=== PATIENT | male | born 1985 | race American Indian/Alaskan Native ===

== ENCOUNTER 2019-11-12 19:01 | Emergency (ER) | payer BC, OTHER ==
[2019-11-12 19:24] VITALS: BP 122/68; PULSE 102; TEMP 97.8; BMI 27.2
[2019-11-12] MEDS ORDERED: ALBUTEROL SO4 2.5/IPRATROPIUM 0.5 INH SOL 3 ML VIAL.NEB. NEB ONE ×3 (19:30→20:22)
[2019-11-12] MEDS ORDERED: DEXAMETHASONE LIQUID 0.5 MG/5 ML PO ONE (19:40)
--- NOTE | 2019-11-12 19:40 | PDOC ---
History of Present Illness - General Chief Complaint: Asthma Stated Complaint: ASTHMA Time Seen by Provider: 11/12/19 19:31 History Source: Patient Exam Limitations: No Limitations Past History - Travel Traveled outside of the country in the last 30 days: No Close contact w/someone who was outside of country & ill: No - Past Medical History Allergies/Adverse Reactions: Allergies Allergy/AdvReac Type Severity Reaction Status Date / Time alcohol Allergy Difficulty Verified 11/12/19 19:25 Breathing Home Medications: Ambulatory Orders Salmeterol/Fluticasone [Advair 100Mcg/50Mcg -] 1 inh IH BID #0 inh 01/17/13 Cephalexin Monohydrate [Keflex -] 500 mg PO Q8H #21 capsule 10/12/16 Ibuprofen 600 mg PO QID #30 tablet 10/12/16 Sulfamethoxazole/Trimethoprim [Bactrim Ds -] 1 tab PO BID #20 tablet 10/12/16 Albuterol 0.083% Nebulizer Deedee [Ventolin 0.083% Nebulizer Soln -] 1 neb NEB Q4H #20 vial 11/12/19 Guaifenesin AC [Robitussin AC] 10 ml PO Q8H PRN #120 ml MDD 3 11/12/19 Methylprednisolone [Medrol Dose Trevor] 4 mg PO ASDIR #21 tablet 11/12/19 Salmeterol/Fluticasone [Advair 100Mcg/50Mcg -] 1 inh IH BID #1 inh 11/12/19 Asthma: Yes COPD: No Diabetes: Yes HTN: Yes Hypercholesterolemia: Yes - Immunization History Immunization Up to Date: Yes - Psycho Social/Smoking Cessation Hx Smoking Status: No Smoking History: Never smoked Have you smoked in the past 12 months: No Number of Cigarettes Smoked Daily: 0 Information on smoking cessation initiated: No Hx Alcohol Use: No Drug/Substance Use Hx: No Substance Use Type: None Hx Substance Use Treatment: No Review of Systems - Review of Systems Able to Perform ROS?: Yes Comments:: 11/12/19 22:47 CONSTITUTIONAL: Absent: fever, chills, diaphoresis, generalized weakness, malaise, loss of appetite HEENT: Absent: rhinorrhea, nasal congestion, throat pain, throat swelling, difficulty swallowing, mouth swelling, ear pain, eye pain, visual Changes CARDIOVASCULAR: Absent: chest pain, loss of consciousness, palpitations, irregular heart rate, peripheral edema RESPIRATORY: Present: Cough, wheezing, shortness of breath. Absent: dyspnea with exertion, orthopnea, stridor, hemoptysis GASTROINTESTINAL: Absent: abdominal pain, abdominal distension, nausea, vomiting, diarrhea, constipation, melena, hematochezia GENITOURINARY: Absent: dysuria, frequency, urgency, hesitancy, hematuria, flank pain, genital pain MUSCULOSKELETAL: Absent: myalgia, arthralgia, joint swelling SKIN: Absent: rash, itching, pallor NEUROLOGIC: Absent: headache, focal weakness or paresthesias, dizziness, unsteady gait, seizure, mental status changes, bladder or bowel incontinence PSYCHIATRIC: Absent: anxiety, depression, suicidal or homicidal ideation, hallucinations. Is the patient limited Yakut proficient: No *Physical Exam - Vital Signs Last Vital Signs Temp Pulse Resp BP Pulse Ox 97.8 F 102 H 22 H 122/68 99 11/12/19 19:22 11/12/19 19:22 11/12/19 19:22 11/12/19 19:22 11/12/19 19:22 - Physical Exam 11/12/19 22:47 GENERAL: Well developed, well nourished. Awake and alert. No acute distress. HEENT: Normocephalic, atraumatic. PERRLA, EOMI. No conjunctival pallor. Sclera are non- icteric. Moist mucous membranes. Oropharynx is clear. NECK: Supple. Full ROM. No JVD. Carotid pulses 2+ and symmetric, without bruits. No thyromegaly. No lymphadenopathy. CARDIOVASCULAR: Regular rate and rhythm. No murmurs, rubs, or gallops. Distal pulses are 2+ and symmetric. PULMONARY: Mild evidence of respiratory distress. Having difficulty speaking in full sentences. Lungs clear with wheezing bilaterally, fair aeration to the bases. No rales or rhonchi. SKIN: Warm and dry. Normal capillary refill. No rashes. No jaundice. NEUROLOGICAL: Alert, awake, appropriate. Cranial nerves 2-12 intact. No deficits to light touch and temperature in face, upper extremities and lower extremities. No motor deficits in the in face, upper extremities and lower extremities. Normoreflexic in the upper and lower extremities. Normal speech. Toes are down- going bilaterally. Gait is normal without ataxia. PSYCHIATRIC: Cooperative. Good eye contact. Appropriate mood and affect. Medical Decision Making - Medical Decision Making 11/12/19 22:48 The patient is a 34-year-old male with past medical history of asthma, who presents to the ER today for shortness of breath and difficulty breathing for 2 days. He states that he tried taking his albuterol pump at home with little relief of his symptoms. He notes that the asthma exacerbation was set off by a postnasal drip. He does not take any inhaled steroids. Denies fevers, chills, earache, sore throat, nausea, vomiting and diarrhea. A/P: Asthma exacerbation On initial exam; lung sounds are tight with wheezing in the apices. Patient having trouble speaking in full sentences Patient given for DuoNeb's, Robitussin and Decadron with relief of symptoms. Repeat exam now with good air sounds to the bases, no wheezing and patient able to talk in full sentences. Patient still with dry cough. O2 sat stable Discharge home with strict follow-up precautions. Patient advised to follow-up with his primary care doctor on Friday I discussed the physical exam findings, ancillary test results and final diagnoses with the patient. I answered all of the patient's questions. The patient was satisfied with the care received and felt comfortable with the discharge plan and treatment plan. The Patient agrees to follow up with the primary care physician/specialist within 24-72 hours. Return precautions were given. Discharge - Discharge Information Problems reviewed: Yes Clinical Impression/Diagnosis: Asthma attack Qualifiers: Asthma severity: mild Asthma persistence: intermittent Qualified Code(s): J45.21 - Mild intermittent asthma with (acute) exacerbation Condition: Stable Disposition: HOME - Admission No - Additional Discharge Information Prescriptions: Albuterol 0.083% Nebulizer Deedee [Ventolin 0.083% Nebulizer Soln -] 1 neb NEB Q4H #20 vial Guaifenesin AC [Robitussin AC] 10 ml PO Q8H PRN #120 ml MDD 3 PRN Reason: Cough Methylprednisolone [Medrol Dose Trevor] 4 mg PO ASDIR #21 tablet Salmeterol/Fluticasone [Advair 100Mcg/50Mcg -] 1 inh IH BID #1 inh - Follow up/Referral Referrals: Emmanuel Owens MD [Primary Care Provider] - - Patient Discharge Instructions Patient Printed Discharge Instructions: Asthma -- Adult Additional Instructions: You were evaluated for your asthma today. Please take the medications as prescribed to you. You were also prescribed Robitussin with codeine. Please do not drink alcohol or drive after taking this medication as it may make you drowsy. This is for your cough. Follow-up with your primary care doctor this week. Return to the ER for increased difficulty breathing, shortness of breath or if you have any changes in your symptoms. - Post Discharge Activity Work/Back to School Note: Back to Work
[2019-11-12] MEDS: ALBUTEROL SO4 2.5/IPRATROPIUM 0.5 INH SOL 3 ML VIAL.NEB. NEB SCH ×2 (20:21→20:55)
[2019-11-12] MEDS ORDERED: DEXAMETHASONE SOD PHOSPHATE 10 MG/1 ML VIAL ONE (20:23)
[2019-11-12] MEDS ORDERED: guaiFENesin/D-METHORPHAN HB 10 ML UNIT-DOSE CUPS PO ONE (21:22)
[2019-11-12] MEDS ORDERED: guaiFENesin/D-METHORPHAN HB 10 ML UNIT-DOSE CUPS ONE (21:24)
== END 2019-11-12 21:32 | disposition home or self-care (01) ==
LOC: JERFT 19:01
PROC: 3E0F7GC Introduction of Other Therapeutic Substance into Respiratory Tract, Via Natural or Artificial Opening (ICD-10-PCS; principal; 2019-11-12)
DX: J45.21 Mild intermittent asthma with (acute) exacerbation (principal); Z88.8 Allergy status to other drugs, medicaments and biological substances
CPT/HCPCS: 99281-25

== ENCOUNTER 2021-01-02 10:36 | Emergency (ER) | payer OTHER | END 2021-01-02 10:47 | disposition home or self-care (01) | LOC: JVIRT 10:36 | DX: U07.1 COVID-19 (principal) | CPT/HCPCS: C9803; G2012-GT; Q3014-GT; U0003 ==

== ENCOUNTER 2021-01-06 13:21 | Inpatient (IN) | payer OTHER ==
[2021-01-06] MEDS ORDERED: DEXAMETHASONE SOD PHOSPHATE 10 MG/1 ML VIAL IVPUSH ONE (14:53)
[2021-01-06] MEDS ORDERED: DEXAMETHASONE SOD PHOSPHATE 10 MG/1 ML VIAL ONE (15:12)
[2021-01-06 15:39] LABS: BASO % 0.3 % (0-2.0); EOS % 0.2 % (0-4.5); HEMATOCRIT 44.3 % (35.4-49); HEMOGLOBIN 15.5 GM/dL (11.7-16.9); LYMPH % 8.8 % (8-40); MCH 30.7 pg (25.7-33.7); MEAN CELL VOLUME 87.7 fl (80-96); MEAN PLT VOLUME 8.4 fl (7.5-11.1); MONO % 12.3 % (3.8-10.2); NEUT % 78.4 % (42.8-82.8); PLATELET COUNT 351 K/MM3 (134-434); RBC 5.06 M/mm3 (4.00-5.60); RDW 12.4 % (11.9-15.9)
[2021-01-06] MEDS ORDERED: ALBUTEROL SO4 2.5/IPRATROPIUM 0.5 INH SOL 3 ML VIAL.NEB. NEB ONE ×2 (15:39→17:38)
[2021-01-06 15:52] LABS: CHLORIDE 107 mmol/L (98-107); POTASSIUM 4.4 mmol/L (3.5-5.1); SODIUM 139 mmol/L (136-145)
[2021-01-06 15:54] LABS: ALBUMIN 2.2 g/dl (3.4-5.0); ANION GAP 10 MMOL/L (8-16); CALCIUM 8.1 mg/dL (8.5-10.1); CO2 22 mmol/L (21-32); GLUCOSE,RANDOM 289 mg/dL (74-106)
[2021-01-06 15:55] LABS: INR 1.02 (0.83-1.09); PROTHROMBIN TIME (PATIENT) 12.3 SEC (9.7-13.0)
[2021-01-06 15:58] LABS: ACTIVATED PTT 35.9 SECONDS (25.2-36.5); SGOT/AST 50 U/L (15-37); SGPT/ALT 62 U/L (13-61)
[2021-01-06 15:59] LABS: BILIRUBIN,TOTAL 0.9 mg/dL (0.2-1); LDH 490 U/L (87-246)
[2021-01-06 16:00] LABS: ALK PHOS 74 U/L (45-117)
[2021-01-06] MEDS ORDERED: ALBUTEROL SO4 2.5/IPRATROPIUM 0.5 INH SOL 3 ML VIAL.NEB. NEB PRN ×2 (16:17→17:30)
[2021-01-06] MEDS ORDERED: REMDESIVIR 200 MG in SODIUM CHLORIDE 210 ML IVPB ONE ×2 (17:30→22:00)
[2021-01-06] MEDS ORDERED: ACETAMINOPHEN 325 MG TABLET (FP) ONE (17:38)
[2021-01-06] MEDS ORDERED: PANTOPRAZOLE 40 MG TABLET ONE (17:39)
[2021-01-06] MEDS ORDERED: ENOXAPARIN NA (PORCINE) 60 MG/0.6 ML DISP.SYRIN SQ ONE (17:40)
[2021-01-06] MEDS: ENOXAPARIN NA (PORCINE) 40 MG/0.4 ML DISP.SYRIN SQ SCH (17:47)
[2021-01-06] MEDS: INSULIN SLIDING SCALE (NOVOLOG) 1 VIAL SQ SCH (17:48)
[2021-01-06] MEDS: PANTOPRAZOLE 40 MG TABLET PO SCH (17:49)
[2021-01-06] MEDS ORDERED: ACETAMINOPHEN 500 MG TABLET (FP) PO ONE (17:52)
[2021-01-06] MEDS: BUDESONIDE/FORMETEROL FUMARATE 160/4.5 mcg INHALER IH SCH (23:00)
[2021-01-06] MEDS: ALBUTEROL SO4 HFA INHALER IH SCH (23:00)
[2021-01-07 01:30] VITALS: BMI 41.1
[2021-01-07] MEDS: INSULIN SLIDING SCALE (NOVOLOG) 1 VIAL SQ SCH ×3 (06:20→18:37)
[2021-01-07 09:24] LABS: BASO % 0.3 % (0-2.0); HEMOGLOBIN 14.3 GM/dL (11.7-16.9); LYMPH % 9.2 % (8-40); MCH 30.2 pg (25.7-33.7); MCHC 34.2 g/dl (32.0-35.9); MEAN CELL VOLUME 88.3 fl (80-96); MEAN PLT VOLUME 8.5 fl (7.5-11.1); MONO % 11.3 % (3.8-10.2); NEUT % 79.2 % (42.8-82.8); PLATELET COUNT 371 K/MM3 (134-434); RBC 4.75 M/mm3 (4.00-5.60); RDW 12.4 % (11.9-15.9); WHITE BLOOD COUNT 11.2 K/mm3 (4.0-10.0)
[2021-01-07 09:42] LABS: POTASSIUM 4.3 mmol/L (3.5-5.1)
[2021-01-07 09:50] LABS: ALBUMIN 2.1 g/dl (3.4-5.0); BLOOD UREA NITROGEN 19.4 mg/dL (7-18); CALCIUM 8.4 mg/dL (8.5-10.1)
[2021-01-07 09:51] LABS: MAGNESIUM 2.2 mg/dL (1.8-2.4)
[2021-01-07 09:54] LABS: PHOSPHOROUS 3.9 mg/dL (2.5-4.9)
[2021-01-07 09:55] LABS: TOT PROT 6.8 g/dl (6.4-8.2)
[2021-01-07] MEDS: DEXAMETHASONE SOD PHOSPHATE 10 MG/1 ML VIAL IVPUSH SCH (09:57)
[2021-01-07 09:59] LABS: BILIRUBIN,TOTAL 0.5 mg/dL (0.2-1)
[2021-01-07] MEDS: ENOXAPARIN NA (PORCINE) 40 MG/0.4 ML DISP.SYRIN SQ SCH (09:59)
[2021-01-07] MEDS: BUDESONIDE/FORMETEROL FUMARATE 160/4.5 mcg INHALER IH SCH ×2 (10:00→21:41)
[2021-01-07] MEDS: ALBUTEROL SO4 HFA INHALER IH SCH ×4 (10:00→20:15)
[2021-01-07] MEDS: PANTOPRAZOLE 40 MG TABLET PO SCH (10:00)
[2021-01-07] MEDS ORDERED: DEXTROSE 5%-WATER 100 ML IVPB ONE ×2 (13:15→21:02)
[2021-01-07] MEDS ORDERED: DOXYCYCLINE HYCLATE 100 MG VIAL ONE ×2 (13:15→21:02)
[2021-01-07] MEDS: DOXYCYCLINE INJECTION 100 MG in DEXTROSE 5%-WATER 100 ML IVPB SCH ×2 (13:36→21:41)
[2021-01-07] MEDS: REMDESIVIR 100 MG in SODIUM CHLORIDE 230 ML IVPB SCH (22:50)
[2021-01-07] MEDS ORDERED: PT OWN MED DRAWER 7, Y5N ONE ×2 (23:15→23:17)
[2021-01-08] MEDS: INSULIN SLIDING SCALE (NOVOLOG) 1 VIAL SQ SCH ×4 (06:09→17:29)
[2021-01-08] MEDS ORDERED: LISINOPRIL 5 MG TABLET PO PRN (06:45)
[2021-01-08] MEDS: INSULIN (NOVOLOG MIX 70/30) 100 UNITS/ML MDV SQ SCH ×2 (08:31→17:23)
[2021-01-08] MEDS: ALBUTEROL SO4 HFA INHALER IH SCH ×4 (08:34→22:21)
[2021-01-08] MEDS ORDERED: DOXYCYCLINE HYCLATE 100 MG VIAL ONE ×2 (09:00→22:18)
[2021-01-08] MEDS ORDERED: DEXTROSE 5%-WATER 100 ML IVPB ONE ×2 (09:00→22:18)
[2021-01-08 09:09] LABS: BASO % 0.3 % (0-2.0); EOS % 0.3 % (0-4.5); HEMATOCRIT 40.6 % (35.4-49); LYMPH % 12.8 % (8-40); MCH 30.2 pg (25.7-33.7); MCHC 34.4 g/dl (32.0-35.9); MEAN CELL VOLUME 87.8 fl (80-96); MEAN PLT VOLUME 8.4 fl (7.5-11.1); MONO % 10.5 % (3.8-10.2); NEUT % 76.1 % (42.8-82.8); PLATELET COUNT 441 K/MM3 (134-434); RBC 4.63 M/mm3 (4.00-5.60); RDW 12.5 % (11.9-15.9); WHITE BLOOD COUNT 12.5 K/mm3 (4.0-10.0)
[2021-01-08 09:40] LABS: POTASSIUM 4.2 mmol/L (3.5-5.1)
[2021-01-08 09:52] LABS: ALBUMIN 2.1 g/dl (3.4-5.0)
[2021-01-08 09:53] LABS: BLOOD UREA NITROGEN 23.3 mg/dL (7-18); CALCIUM 8.5 mg/dL (8.5-10.1)
[2021-01-08 09:57] LABS: BILIRUBIN,TOTAL 0.5 mg/dL (0.2-1); TOT PROT 6.8 g/dl (6.4-8.2)
[2021-01-08] MEDS ORDERED: PT OWN MED DRAWER 7, Y5N ONE ×2 (10:43→22:18)
[2021-01-08] MEDS: PANTOPRAZOLE 40 MG TABLET PO SCH (10:45)
[2021-01-08] MEDS: ENOXAPARIN NA (PORCINE) 40 MG/0.4 ML DISP.SYRIN SQ SCH (10:45)
[2021-01-08] MEDS: BUDESONIDE/FORMETEROL FUMARATE 160/4.5 mcg INHALER IH SCH ×2 (10:47→22:25)
[2021-01-08] MEDS: DOXYCYCLINE INJECTION 100 MG in DEXTROSE 5%-WATER 100 ML IVPB SCH ×2 (11:05→22:20)
[2021-01-08] MEDS: DEXAMETHASONE SOD PHOSPHATE 10 MG/1 ML VIAL IVPUSH SCH (11:05)
[2021-01-08] MEDS ORDERED: INSULIN (NOVOLOG) ASPART 100 UNITS/ML 10ML VIAL ONE ×2 (11:31→17:28)
[2021-01-08] MEDS ORDERED: LYTES/YERBA SANTA 60 ML SPRAY MM PRN ×2 (11:43→11:44)
[2021-01-08] MEDS ORDERED: INSULIN (NOVOLOG MIX 70/30) 100 UNITS/ML MDV SQ SCH (20:29)
[2021-01-08] MEDS: REMDESIVIR 100 MG in SODIUM CHLORIDE 230 ML IVPB SCH (22:50)
[2021-01-09] MEDS: INSULIN SLIDING SCALE (NOVOLOG) 1 VIAL SQ SCH ×3 (06:30→15:35)
[2021-01-09 09:17] LABS: BASO % 0.3 % (0-2.0); EOS % 0.3 % (0-4.5); HEMOGLOBIN 14.5 GM/dL (11.7-16.9); LYMPH % 17.2 % (8-40); MCH 30.3 pg (25.7-33.7); MCHC 34.5 g/dl (32.0-35.9); MEAN CELL VOLUME 87.7 fl (80-96); MEAN PLT VOLUME 8.7 fl (7.5-11.1); MONO % 12.1 % (3.8-10.2); NEUT % 70.1 % (42.8-82.8); PLATELET COUNT 444 K/MM3 (134-434); RBC 4.79 M/mm3 (4.00-5.60); RDW 12.9 % (11.9-15.9); WHITE BLOOD COUNT 9.9 K/mm3 (4.0-10.0)
[2021-01-09] MEDS ORDERED: DEXTROSE 5%-WATER 100 ML IVPB ONE (09:20)
[2021-01-09] MEDS ORDERED: DOXYCYCLINE HYCLATE 100 MG VIAL ONE (09:20)
[2021-01-09] MEDS: ALBUTEROL SO4 HFA INHALER IH SCH ×4 (09:30→21:52)
[2021-01-09] MEDS: DEXAMETHASONE SOD PHOSPHATE 10 MG/1 ML VIAL IVPUSH SCH (09:30)
[2021-01-09] MEDS: DOXYCYCLINE INJECTION 100 MG in DEXTROSE 5%-WATER 100 ML IVPB SCH (09:31)
[2021-01-09] MEDS: PANTOPRAZOLE 40 MG TABLET PO SCH (09:31)
[2021-01-09] MEDS: BUDESONIDE/FORMETEROL FUMARATE 160/4.5 mcg INHALER IH SCH ×2 (09:31→21:53)
[2021-01-09] MEDS: ENOXAPARIN NA (PORCINE) 40 MG/0.4 ML DISP.SYRIN SQ SCH (09:31)
[2021-01-09] MEDS ORDERED: INSULIN (NOVOLOG MIX 70/30) 100 UNITS/ML MDV SQ SCH ×2 (09:36→11:05)
[2021-01-09] MEDS ORDERED: LISINOPRIL 5 MG TABLET PO PRN (09:37)
[2021-01-09 09:48] LABS: CHLORIDE 105 mmol/L (98-107); POTASSIUM 3.9 mmol/L (3.5-5.1); SODIUM 137 mmol/L (136-145)
[2021-01-09 10:23] LABS: CALCIUM 8.3 mg/dL (8.5-10.1)
[2021-01-09 10:24] LABS: ALBUMIN 2.1 g/dl (3.4-5.0); ANION GAP 7 MMOL/L (8-16); BLOOD UREA NITROGEN 24.5 mg/dL (7-18); CO2 25 mmol/L (21-32); GLUCOSE,RANDOM 275 mg/dL (74-106)
[2021-01-09 10:26] LABS: SGPT/ALT 73 U/L (13-61)
[2021-01-09 10:27] LABS: BILIRUBIN,TOTAL 0.4 mg/dL (0.2-1); SGOT/AST 53 U/L (15-37); TOT PROT 6.6 g/dl (6.4-8.2)
[2021-01-09 10:29] LABS: ALK PHOS 66 U/L (45-117); CHOLESTEROL 175 mg/dL (50-200); TRIGLYCERIDES 225 mg/dL (0-150)
[2021-01-09 10:30] LABS: CREATININE 0.9 mg/dL (0.55-1.3); LDL CHOLESTEROL (ONLY SJRH) 116 mg/dL (5-100)
[2021-01-09 10:32] LABS: HDL CHOLESTEROL 38 mg/dL (40-60)
[2021-01-09 10:35] LABS: N-TERMINAL BNP 376.4 pg/ml (5-125)
[2021-01-09 11:34] LABS: ANISOCYTOSIS 0; MACROCYTOSIS 0; PLATELET ESTIMATE NORMAL
[2021-01-09] MEDS ORDERED: INSULIN (NOVOLOG) ASPART 100 UNITS/ML 10ML VIAL ONE (15:43)
[2021-01-09] MEDS: INSULIN (NOVOLOG MIX 70/30) 100 UNITS/ML MDV SQ SCH (16:02)
[2021-01-09] MEDS: REMDESIVIR 100 MG in SODIUM CHLORIDE 230 ML IVPB SCH (21:52)
[2021-01-10] MEDS: INSULIN SLIDING SCALE (NOVOLOG) 1 VIAL SQ SCH ×3 (06:50→15:41)
[2021-01-10] MEDS: INSULIN (NOVOLOG MIX 70/30) 100 UNITS/ML MDV SQ SCH ×2 (06:51→15:41)
[2021-01-10] MEDS ORDERED: INSULIN (NOVOLOG MIX 70/30) 100 UNITS/ML MDV SQ SCH ×2 (09:30→16:30)
[2021-01-10] MEDS: DEXAMETHASONE SOD PHOSPHATE 10 MG/1 ML VIAL IVPUSH SCH (09:31)
[2021-01-10] MEDS: ALBUTEROL SO4 HFA INHALER IH SCH ×4 (09:32→21:45)
[2021-01-10] MEDS: ENOXAPARIN NA (PORCINE) 40 MG/0.4 ML DISP.SYRIN SQ SCH (09:32)
[2021-01-10] MEDS: PANTOPRAZOLE 40 MG TABLET PO SCH (09:32)
[2021-01-10] MEDS: amLODIPine BESYLATE 2.5 MG TABLET (FP) PO SCH (09:32)
[2021-01-10] MEDS: BUDESONIDE/FORMETEROL FUMARATE 160/4.5 mcg INHALER IH SCH ×2 (09:33→21:43)
[2021-01-10] MEDS: DOXYCYCLINE HYCLATE 100 MG CAPSULE PO SCH ×2 (09:33→17:07)
[2021-01-10] MEDS ORDERED: LISINOPRIL 5 MG TABLET PO SCH (10:00)
[2021-01-10] MEDS: LISINOPRIL 10 MG TABLET PO SCH (11:44)
[2021-01-10] MEDS ORDERED: PT OWN MED DRAWER 7, Y5N ONE (21:12)
[2021-01-10] MEDS: REMDESIVIR 100 MG in SODIUM CHLORIDE 230 ML IVPB SCH (21:41)
[2021-01-11] MEDS: INSULIN (NOVOLOG MIX 70/30) 100 UNITS/ML MDV SQ SCH (06:21)
[2021-01-11] MEDS: INSULIN SLIDING SCALE (NOVOLOG) 1 VIAL SQ SCH ×2 (06:21→12:31)
[2021-01-11 09:12] LABS: BASO % 0.3 % (0-2.0); EOS % 0.7 % (0-4.5); HEMATOCRIT 42.2 % (35.4-49); LYMPH % 21.5 % (8-40); MCH 30.4 pg (25.7-33.7); MCHC 35.5 g/dl (32.0-35.9); MEAN CELL VOLUME 85.6 fl (80-96); MEAN PLT VOLUME 8.3 fl (7.5-11.1); MONO % 9.9 % (3.8-10.2); NEUT % 67.6 % (42.8-82.8); PLATELET COUNT 483 K/MM3 (134-434); RBC 4.93 M/mm3 (4.00-5.60); RDW 12.2 % (11.9-15.9); WHITE BLOOD COUNT 12.4 K/mm3 (4.0-10.0)
[2021-01-11 09:29] LABS: POTASSIUM 3.7 mmol/L (3.5-5.1)
[2021-01-11] MEDS: ALBUTEROL SO4 HFA INHALER IH SCH ×2 (09:38→12:31)
[2021-01-11] MEDS: ENOXAPARIN NA (PORCINE) 40 MG/0.4 ML DISP.SYRIN SQ SCH (09:38)
[2021-01-11] MEDS: LISINOPRIL 10 MG TABLET PO SCH (09:39)
[2021-01-11] MEDS: DOXYCYCLINE HYCLATE 100 MG CAPSULE PO SCH (09:39)
[2021-01-11] MEDS: BUDESONIDE/FORMETEROL FUMARATE 160/4.5 mcg INHALER IH SCH (09:39)
[2021-01-11] MEDS: amLODIPine BESYLATE 2.5 MG TABLET (FP) PO SCH (09:39)
[2021-01-11] MEDS: PANTOPRAZOLE 40 MG TABLET PO SCH (09:39)
[2021-01-11 09:44] LABS: BILIRUBIN,TOTAL 0.4 mg/dL (0.2-1)
[2021-01-11 09:46] LABS: ALBUMIN 2.2 g/dl (3.4-5.0); BLOOD UREA NITROGEN 21.4 mg/dL (7-18)
[2021-01-11 09:51] LABS: TOT PROT 6.4 g/dl (6.4-8.2)
[2021-01-11 09:53] LABS: CREATININE 0.8 mg/dL (0.55-1.3)
[2021-01-11 09:59] LABS: CALCIUM 8.3 mg/dL (8.5-10.1)
[2021-01-11] MEDS ORDERED: DEXAMETHASONE 4 MG TABLET (FP) PO SCH (10:00)
[2021-01-11 11:49] LABS: ANISOCYTOSIS 0; MACROCYTOSIS 0; PLATELET ESTIMATE NORMAL
[2021-01-11 14:27] VITALS: BP 136/83; PULSE 77; TEMP 97.8
[2021-01-11] MEDS ORDERED: ATORVASTATIN CA 20 MG TABLET (FP) PO SCH (22:00)
== END 2021-01-11 16:16 | disposition home or self-care (01) | DRG 177 ==
LOC: JER 13:21 → JERBED 15:36 → J6S 19:02
PROVIDERS: ADMIT Internal Medicine; ATTEND Internal Medicine
PROC: XW033E5 Introduction of Remdesivir Anti-infective into Peripheral Vein, Percutaneous Approach, New Technology Group 5 (ICD-10-PCS; principal; 2021-01-06)
DX: U07.1 COVID-19 (principal); J12.82 Pneumonia due to coronavirus disease 2019; Z68.41 Body mass index [BMI] 40.0-44.9, adult; E66.01 Morbid (severe) obesity due to excess calories; R09.02 Hypoxemia; R94.5 Abnormal results of liver function studies; I10 Essential (primary) hypertension; D72.829 Elevated white blood cell count, unspecified; E11.9 Type 2 diabetes mellitus without complications; G47.30 Sleep apnea, unspecified; E78.5 Hyperlipidemia, unspecified; J45.909 Unspecified asthma, uncomplicated; F41.9 Anxiety disorder, unspecified
CPT/HCPCS: 36415; 71046-TC-FY; 80053; 80061; 82550; 82553; 82728; 82962; 83036; 83615; 83721; 83735; 83880; 84100; 84439; 84443; 84484; 85025; 85379; 85610; 85730; 86140; 87804; 93005; 93010; 93306-TC; 94010; 97116-GP; 97161-GP; 99285-25; C9399; C9803; J1100; U0003

== ENCOUNTER 2021-11-07 05:21 | Day surgery (SDC) | payer OTHER ==
[2021-11-05 14:05] VITALS: BMI 39.2
[~2021-11-07 05:21] MED LIST: ACETAMINOPHEN 325 MG TABLET (FP) PO PRN; BSS (NA/CA/MG/K) BALANCED SALT SOLUTION OPHTH SOLN 15 ML BOTTLE OS ONE; CHONDROITIN SU A/HYALUR SOD 1 KIT IO ONE; CYCLOPENTOLATE HCL 1% OPHTH SOLN 2 ML BOTTLE OP SCH; EPINEPHrine/PF 1 MG/1 ML (1:1,000) AMPULE IO ONE; KETOROLAC TROMETHAMINE 0.5% EYE DROP 1 DROP DROPS OP SCH; LIDOCAINE HCL 1% PRESERVATIVE FREE - 30ML VIAL IO ONE; OFLOXACIN 0.3% OPHTHALMIC SOLUTION 5 ML BOTTLE OP SCH; PHENYLEPHRINE 2.5% OPHTH SOLN 15 ML BOTTLE OP SCH; TROPICAMIDE 1% OPHTH SOLN 15 ML BOTTLE OP SCH
[2021-11-07] MEDS ORDERED: CYCLOPENTOLATE HCL 1% OPHTH SOLN 2 ML BOTTLE ONE (08:02)
[2021-11-07] MEDS ORDERED: TROPICAMIDE 1% OPHTH SOLN 15 ML BOTTLE ONE (08:02)
[2021-11-07] MEDS ORDERED: KETOROLAC TROMETHAMINE 0.5% EYE DROP 1 DROP DROPS ONE (08:02)
[2021-11-07] MEDS ORDERED: OFLOXACIN 0.3% OPHTHALMIC SOLUTION 5 ML BOTTLE ONE (08:02)
[2021-11-07] MEDS ORDERED: PHENYLEPHRINE 2.5% OPTHALMIC DROP BOTTLE ONE (08:03)
[2021-11-07] MEDS ORDERED: LIDOCAINE HCL/PF 1% SDV 5ML VIAL ONE (08:06)
[2021-11-07] MEDS ORDERED: EPINEPHrine/PF 1 MG/1 ML (1:1,000) AMPULE ONE (08:06)
[2021-11-07] MEDS ORDERED: TETRACAINE 0.5% OPHTH SOLN 2 ML BOTTLE ONE (08:07)
[2021-11-07] MEDS ORDERED: POVIDONE-IODINE 5% OPHTHALMIC PREP 30 ML SOLUTION ONE (08:07)
[2021-11-07] MEDS ORDERED: OFLOXACIN 0.3% OPHTHALMIC SOLUTION 5 ML BOTTLE OS ONE ×3 (08:30→08:40)
[2021-11-07] MEDS ORDERED: TROPICAMIDE 1% OPHTH SOLN 15 ML BOTTLE OS ONE ×3 (08:30→08:40)
[2021-11-07] MEDS ORDERED: CYCLOPENTOLATE HCL 1% OPHTH SOLN 2 ML BOTTLE OS ONE ×3 (08:30→08:40)
[2021-11-07] MEDS ORDERED: KETOROLAC TROMETHAMINE 0.5% EYE DROP 1 DROP DROPS OS ONE ×3 (08:30→08:40)
[2021-11-07] MEDS ORDERED: PHENYLEPHRINE 2.5% OPHTH SOLN 15 ML BOTTLE OS ONE ×3 (08:30→08:40)
[2021-11-07] MEDS ORDERED: MIDAZOLAM HCL 2 MG/2 ML SINGLE DOSE VIAL ONE (10:04)
[2021-11-07] MEDS ORDERED: TETRACAINE 0.5% OPHTH SOLN 2 ML BOTTLE OS ONE (10:10)
[2021-11-07] MEDS ORDERED: POVIDONE-IODINE 5% OPHTHALMIC PREP 30 ML SOLUTION OS ONE (10:11)
[2021-11-07] MEDS ORDERED: LIDOCAINE HCL 1% PRESERVATIVE FREE - 30ML VIAL IO ONE (10:21)
[2021-11-07] MEDS ORDERED: TRYPAN BLUE 0.5 ML DISP.SYRIN IO ONE (10:22)
[2021-11-07] MEDS ORDERED: CHONDROITIN SU A/HYALUR SOD 1 KIT IO ONE (10:23)
[2021-11-07] MEDS ORDERED: BSS (NA/CA/MG/K) BALANCED SALT SOLUTION OPHTH SOLN 15 ML BOTTLE OS ONE (10:24)
[2021-11-07] MEDS ORDERED: EPINEPHrine/PF 1 MG/1 ML (1:1,000) AMPULE IO ONE (10:28)
[2021-11-07 12:10] VITALS: TEMP 97.8
[2021-11-07 12:15] VITALS: BP 145/102; PULSE 93
[2021-11-07] MEDS ORDERED: TRYPAN BLUE 0.5 ML DISP.SYRIN ONE (13:05)
== END 2021-11-07 11:55 | disposition home or self-care (01) ==
LOC: JASU-SURG 05:21
PROVIDERS: ATTEND Ophthalmology
PROC: 08RK3JZ Replacement of Left Lens with Synthetic Substitute, Percutaneous Approach (ICD-10-PCS; principal; 2021-11-07 10:00)
DX: H26.9 Unspecified cataract (principal); I10 Essential (primary) hypertension; E11.9 Type 2 diabetes mellitus without complications
CPT/HCPCS: 82962